=== PATIENT | male | born 2000 | race African-American/Black ===

== ENCOUNTER 2022-04-21 08:50 | Emergency (ER) | payer SELFPAY ==
[~2022-04-21] VITALS: Ht 175.3 cm; Wt 77.1 kg
[2022-04-21] MEDS ORDERED: AZITHROMYCIN250 MG PO (09:46)
[2022-04-21] MEDS ORDERED: THERAFLU FLU &1 EAC1 PO (09:46)
== END 2022-04-21 09:58 | disposition home or self-care (01) ==
LOC: FSED 08:53
DX: Z20.822 Contact with and (suspected) exposure to COVID-19 (principal); R05.9 Cough, unspecified
CPT/HCPCS: 99282